=== PATIENT | female | born 1985 | race Caucasian/White ===

== ENCOUNTER 2020-05-05 04:36 | Outpatient (CLI) | payer MEDICAID, SELFPAY ==
--- NOTE | 2020-05-10 12:27 | PDOC.EEG_ITS ---
Neurology EEG EEG: [facility] Department of Neurology LONG-TERM AMBULATORY EEG REPORT Date of Recordin05/05/20 at 15:28:41 to 05/06/20 at 11:36:59 Interpreting Physician: Dr. Selene Damico PCP/Referring Provider: Dr. Ji Reason for study: Mr. Maldonado is a 35 year-old man with a recent unwitnessed event of loss of consciousness of unclear etiology. Current Medications: Home Medications Medication Instructions Recorded Confirmed Type amitriptyline 50 mg tablet 50 mg PO DAILY 04/11/20 04/12/20 History bupropion HCl 100 mg tablet 100 mg PO DAILY tab 04/11/20 04/12/20 History cholecalciferol (vitamin D3) 10 10 mcg PO DAILY 04/11/20 04/12/20 History mcg (400 unit) capsule cholecalciferol (vitamin D3) 25 25 mcg PO DAILY 04/11/20 04/12/20 History mcg (1,000 unit) capsule cyanocobalamin (vitamin B-12) 1,000 mcg PO DAILY 04/11/20 04/12/20 History 1,000 mcg capsule doxepin 10 mg capsule 30 mg PO DAILY cap 04/11/20 04/12/20 History famotidine 20 mg tablet 20 mg PO DAILY 04/11/20 04/12/20 History glipizide 5 mg tablet 5 mg PO DAILY 04/11/20 04/12/20 History metformin 500 mg tablet 500 mg PO TID 04/11/20 04/12/20 History oxybutynin chloride 10 mg 10 mg PO DAILY 04/11/20 04/12/20 History tablet,extended release 24 hr quetiapine 200 mg tablet,extended 200 mg PO DAILY 04/11/20 04/12/20 History release 24 hr simvastatin 40 mg tablet 40 mg PO DAILY 04/11/20 04/12/20 History METHODS: An 18-channel digitized electroencephalogram was recorded in the ambulatory se tting with video. The 10/20 international system of electrode placement was used and bipolar and referential electrode montages were recorded. In addition to EEG the patient was monitored for EKG and by video. Activation procedures of photic stimulation and hyperventilation were performed if applicable. The duration of the recording was ~20 hours. DESCRIPTION OF EEG: Waking background activity: During maximal wakefulness a 9-Hz posterior background rhythm was present which was well-modulated, symmetrical, reactive to eye opening, and of moderate voltage. Faster frequencies were present in the bilateral anterior head regions. There was a normal anterior-posterior voltage gradient. Drowsy and sleeping background activity: During drowsiness, there was attenuatio n of the posterior dominant background rhythm and vertex waves. Normal stage II and III sleep was present with symmetrical sleep spindles, K-complexes, and vertex waves with slowing of the background rhythm to delta/theta frequencies. REM sleep manifested by rapid lateral eye movements and faster background rhythms was recorded. Arousal was unremarkable. Interictal abnormalities: none. Ictal findings: No events captured. Activating Procedures: Photic stimulation was performed which produced no posterior driving response. Hyperventilation was performed with moderate effort and produced no physiological slowing of the background. EKG: EKG revealed normal sinus rhythm. INTERPRETATION: This long-term EEG is normal during the awake and sleep states as well as during the activation procedures. PRIOR EEG: none CLINICAL CORRELATION: No focal regions of cerebral dysfunction or epileptiform activity was present. Epilepsy remains a clinical diagnosis and a normal EEG does not rule out epilepsy. Clinical correlation is advised. Selene Damico MD
== END 2020-05-05 04:56 ==
PROVIDERS: PCP Family Medicine; Visit Provider Psychiatry & Neurology Neurology
DX: R41.89 Other symptoms and signs involving cognitive functions and awareness (principal); R56.9 Unspecified convulsions
CPT/HCPCS: 95714

== ENCOUNTER 2023-05-23 17:28 | Outpatient (CLI) | payer MEDICAID, SELFPAY ==
[2023-05-23 16:35] LABS: HCT 41.8 % (36.0-46.0); HGB 14.3 g/dL (11.2-15.7); MCH 29.2 pg (27.0-33.0); MCHC 34.2 % (32.0-36.0); MCV 86 fL (80-95); MPV 9.2 fL (8.0-11.0); Platelet Count 271 10^3/uL (130-400); RBC 4.89 10^6/uL (3.93-5.22); RDW 12.3 % (11.7-14.6); RDW-SD 38.5 fL; WBC 7.47 10^3/uL (4.4-10.8)
[2023-05-23 17:08] LABS: ALT 45 U/L (14-59); AST 45 U/L (15-37); Albumin 3.7 g/dL (3.4-5.0); Alkaline Phosphatase 107 U/L (46-116); BUN 14 mg/dL (7-18); Bilirubin, Total 0.5 mg/dL (0.2-1.0); CREATININE 1.2 mg/dL (0.55-1.02); Calcium 8.8 mg/dL (8.5-10.1); Chloride 103 mmol/L (98-107); Estimated GFR 59.05 (mL/min/1.73m2); Glucose 250 mg/dL (74-106); LDH 167 U/L (81-234); Potassium 3.9 mmol/L (3.5-5.1); Sodium 136 mmol/L (136-145); Total Protein 7.5 g/dL (6.4-8.2)
[2023-05-27 08:52] LABS: AFP Tumor Marker 5.1 ng/mL (<8.1)
[2023-05-27 10:30] LABS: Beta-HCG, Quant, Tumor Marker <0.6 IU/L
== END 2023-05-23 17:29 | disposition home or self-care (01) ==
LOC: LBO 17:29
PROVIDERS: PCP Family Medicine; Visit Provider Urology
DX: C62.12 Malignant neoplasm of descended left testis (principal)
CPT/HCPCS: 36415; 80053; 85027; 82105; 83615; 84702

== ENCOUNTER 2024-08-03 01:02 | Outpatient (CLI) | payer MEDICAID, SELFPAY ==
--- NOTE | 2024-08-03 | DI.NM_ITS ---
APPROVED REPORT Exam: Pharmacologic Patient Location: Out-Patient Room/Bed: Stress Nurse: Yen Hayes RN Ordering Provider:BEV DE LEON, Contact Number: [phone] BMI: 32.99 Baseline Rhythm: Sinus Rhythm Indications: chest pain Medical History Medical History: SI, hypersomnia, migraine, memory loss, orthostatic hypotension, seizure, GERD, bipo lar, anemia, HLD, diabetes, depression Cardiac Medications: bupropion, doxepin, famotidine, emgality, glipizide, metformin, quetiapine, simv astatin, sumatriptan, zonisamide, zofran Allergies: amoxicillin, penicillins, ranitidine Cardiac Risk Factors: family hx, diabetes, HLD, obesity Previous Cardiac Procedures: none Pretest Chest Pain Characteristics: Non-exertional Chest pain Exercise History: Sedentary Physical Disabilities: Back Lung Sounds: Clear to auscultation Heart Sounds: Regular Stress Test Details Test: Pharmacologic stress testing performed using 0.4 mg of regadenoson per 5 mL given IV over 10 s econds. Reason for pharmacologic stress test: physical limitation. Nuclear Acquisition: Rest Tc-99m/Stress Tc-99m 1 day Rest Isotope: Tc-99m Sestamibi. Dose: 10.0 Date: 08/03/2024 Injection Time: 1050 Stress Isotope: Tc-99m Sestamibi. Dose: 31.0 Date: 08/03/2024 Injection Time: 1245 HR Resting HR Supine: 68 bpm Max Heart Rate (APMHR): 180.197760 bpm Target HR (85% APMHR): 153.722712 bpm Max HR Achieved: 109 bpm % of APMHR: 60.56 Recovery HR: 77 bpm BP Resting BP Supine: 108/64 mmHg Max BP: 120/70 mmHg Recovery BP: 100/62 mmHg ECG Resting ECG: Sinus Rhythm Ectopy: none Stress ECG: Sinus Tachycardia ST Change: Nondiagnostic low heart rate Arrhythmia: None Recovery ECG: Sinus Rhythm Recovery ST Change: Nondiagnostic low heart rate Recovery Arrhythmia: None Clinical Stress Symptoms: Chest pain, SOB Angina Score: Non-Limiting Rate Pressure Product: 79030 Stress ECG Conclusion 1. Resting electrocardiogram was normal 2. Patient underwent testing using pharmacologic stress with regadenoson 3. Peak heart rate achieved was 61% of maximal predicted for age 4. The electrocardiographic portion of the test was nondiagnostic 5. See MPI report Stress Test Summary STAGE HR BP SpO2 Symptoms NOTES Supine 68 108/64 96 mild chest pain 1 min post Lexiscan injection 76 112/80 94 SOB, mild chest pain 3 min post Lexiscan injection 98 120/70 SOB, mild chest pain 6 min post Lexiscan injection 77 100/62 96 symptoms resolved Pt has constant baseline chest pain he rates a 0.5/10, no other symptoms. His chest pain increase to a max score of 1.5/10 during test. All symptoms resolved by end of test and patient left ambulatory i n no acute distress. MPI Conclusion Myocardial perfusion is normal. There is no ischemia or evidence of prior infarction Ejection fraction is 42% with global hypokinesis Radiologist Interpretation Radiologist Interpretation by: Hugo Godinez MD Interpretation Date/Time: 08/05/2024 14:46:09
[2024-08-03] MEDS: Regadenoson 0.4 MG/5 ML SYR IVP (12:45)
== END 2024-08-03 01:22 ==
PROVIDERS: PCP Family Medicine; Visit Provider Internal Medicine
DX: R07.9 Chest pain, unspecified (principal)
CPT/HCPCS: 78452; 93017; J2785

== ENCOUNTER 2025-01-29 16:47 | Emergency (ER) | payer MEDICAID, SELFPAY ==
[2025-01-29 17:02] VITALS: BP 127/85; PULSE 111; RESP 18; TEMP 36.7
[2025-01-29 18:11] VITALS: BP 124/76; PULSE 83; RESP 18; TEMP 36.7; O2SAT 99
[2025-01-29 19:49] VITALS: BP 128/64; PULSE 78; RESP 18; TEMP 36.7; O2SAT 98
--- NOTE | 2025-01-29 23:01 | W.ED.GENAD ---
Discharge Plan Disposition Patient Disposition: Home Condition: Stable Discharge Details Clinical Impression: Pain in testicle Primary Care Provider: Jaron Ji ED Provider: Erin Mercado Home Meds and New Rx's Prescriptions: Continued zonisamide 100 mg capsule 200 mg PO HS Qty: 180 3RF Emgality Pen 120 mg/mL pen injector 120 mg subcut QMONTH Qty: 3 3RF sumatriptan succinate 100 mg tablet See Rx Instructions PO .COMPLEX Qty: 9 5RF Rx Instructions: take 1 tab at onset of headache; if no relief, may repeat 1 tab after at least 2 hrs; max = 2 tabs/24 hrs PO aspirin [Adult Aspirin Regimen] 81 mg tablet,delayed release (DR/EC) 81 mg PO DAILY ibuprofen [Advil] 200 mg tablet 600 mg PO Q6H PRN quetiapine 200 mg tablet extended release 24 hr 200 mg PO QHS Qty: 30 0RF bupropion HCl 100 mg tablet 100 mg PO DAILY famotidine 20 mg tablet 20 mg PO DAILY glipizide 5 mg tablet 5 mg PO DAILY simvastatin 40 mg tablet 40 mg PO DAILY doxepin 10 mg capsule 20 mg PO QHS Qty: 180 3RF metformin 500 mg tablet 1,000 mg PO BID Discharge Instructions Additional Instructions: Diagnostic imaging will call you regarding your ultrasound to schedule it A muscle listening referral to Dr. Nazario our urologist Please return earlier should you have new or worsening complaints Wear supportive garments Please return earlier should you have new or worsening complaints Referrals: Damian Nazario MD [ [facility] STAFF PHYSICIAN] - 1 week Discharge Orders Other Ambulatory Orders: US scrotum (Routine) Timeframe: 3 Days Facility: [facility] - Location: DIAGNOSTIC IMAGING Ordered By: Erin Mercado Discharge Data Discharge Date/Time-TO BE ENTERED AT DEPARTURE: 01/29/25 19:50 HPI General Date/Time Provider Initiated Documentation: 01/29/25 17:33. HPI Narrative: 39-year-old male with history of left-sided testicular cancer, status post orchiectomy 5 years ago, presents with right-sided testicular pulling for 3 months. No sexual activity for 10 years, no trauma, no systemic symptoms (fever, chills, urinary complaints, weight loss, night sweats). Related Data Home Medications ?Medication ?Instructions ?Recorded ?Confirmed bupropion HCl 100 mg tablet 100 mg PO DAILY 04/11/20 01/29/25 famotidine 20 mg tablet 20 mg PO DAILY 04/11/20 01/29/25 glipizide 5 mg tablet 5 mg PO DAILY 04/11/20 01/29/25 simvastatin 40 mg tablet 40 mg PO DAILY 04/11/20 01/29/25 doxepin 10 mg capsule 20 mg (2 x 10 mg) PO QHS #180 caps 04/16/24 01/29/25 metformin 500 mg tablet 1,000 mg PO BID 05/28/24 01/29/25 aspirin 81 mg tablet,delayed 81 mg PO DAILY 08/27/24 01/29/25 release (Adult Aspirin Regimen) ibuprofen 200 mg tablet (Advil) 600 mg PO Q6H PRN 08/27/24 01/29/25 quetiapine 200 mg tablet,extended 200 mg PO QHS #30 tabs 08/27/24 01/29/25 release 24 hr galcanezumab-gnlm 120 mg/mL 120 mg subcut QMONTH #3 mL 12/22/24 01/29/25 subcutaneous pen injector (Emgality Pen) sumatriptan succinate 100 mg tablet See Rx Instructions PO .COMPLEX #9 12/22/24 01/29/25 tabs zonisamide 100 mg capsule 200 mg (2 x 100 mg) PO HS #180 caps 12/22/24 01/29/25 Previous Rx's ?Medication ?Instructions ?Recorded doxepin 10 mg capsule 20 mg (2 x 10 mg) PO QHS #180 caps 04/16/24 quetiapine 200 mg tablet,extended 200 mg PO QHS #30 tabs 08/27/24 release 24 hr galcanezumab-gnlm 120 mg/mL 120 mg subcut QMONTH #3 mL 12/22/24 subcutaneous pen injector (Emgality Pen) sumatriptan succinate 100 mg tablet See Rx Instructions PO .COMPLEX #9 12/22/24 tabs zonisamide 100 mg capsule 200 mg (2 x 100 mg) PO HS #180 caps 12/22/24 Allergies Allergy/AdvReac Type Severity Reaction Status Date / Time amoxicillin Allergy Other (See Verified 01/29/25 17:04 Comment) Penicillins Allergy Other (See Verified 01/29/25 17:04 Comment) ranitidine AdvReac Unknown Other (See Verified 01/29/25 17:04 Comment) General Stated Complaint: Male Reproductive Problem EVIN: 3 Exam Narrative Exam Narrative: General Appearance: Alert and oriented. Vital signs: Within normal limits. HEENT: Within normal limits. Respiratory: Within normal limits. Gastrointestinal: No abdominal tenderness. Genitourinary: Male: Slight tenderness without swelling, normal cremasteric reflex on right testicle. No hernia, masses, or lesions. Lymphatic: No lymphadenopathy. Skin: Warm and dry, no rash. Neurological: Normal. Course Vital Signs Vital signs: Vital Signs Temperature 36.7 C 01/29/25 17:02 Pulse 111 H 01/29/25 17:02 Respiratory Rate 18 01/29/25 17:02 Blood Pressure 127/85 01/29/25 17:02 Temperature 36.7 C 01/29/25 19:49 Temperature Source Oral 01/29/25 18:11 Pulse 78 01/29/25 19:49 Respiratory Rate 18 01/29/25 19:49 Blood Pressure 128/64 01/29/25 19:49 Blood Pressure Mean 92 01/29/25 18:11 Pulse Oximetry 98 01/29/25 19:49 Oxygen Delivery Method Room Air 01/29/25 18:11 Oxygen Flow Rate 0 01/29/25 18:11 Pain Level 3 01/29/25 18:11 Medical Decision Making Initial Assessment: 39-year-old male with history of left-sided testicle cancer status post orchiectomy 5 years ago, presents with right-sided testicular pulling for 3 months. Denies fever, chills, urinary complaints, sexual activity for 10 years, trauma, weight loss, or night sweats. Slight tenderness without swelling, normal cremasteric reflex on right. No hernia, masses, lesions, abdominal tenderness, or lymphadenopathy. ED Course: - Ordered outpatient scrotal ultrasound due to history of left-sided testicular cancer and orchiectomy. - No acute abnormality, no emergent ultrasound needed. - Referral to Dr. Nazario in urology. - Reviewed return precautions, patient understood. Final Assessment: Patient presents with right-sided testicular pulling for 3 months with slight tenderness but no swelling or other significant findings. Outpatient scrotal ultrasound ordered, no acute abnormality found, referral to urology made. Clinical Impression: - Right-sided testicular pulling Disposition: - Discharge - Follow-Up: Referral to Dr. Nazario in urology. Patient Education: Reviewed return precautions, patient expressed understanding. MDM Components Evaluation: - Number of Differential Diagnoses or Management Options: Right-sided testicular pulling - Amount and Complexity of Data Reviewed: Outpatient scrotal ultrasound ordered, referral to urology. - Risk of Complication and Morbidity or Mortality: Low risk given no acute abnormality and extended duration of symptoms. Quality:SDOH Health Related Social Needs: No Data to Display PFSH All Active Problems (Updated 01/29/25 @ 19:43 by LARA Smith) Pain in testicle (Acute) Suicidal ideation (Acute) Hypersomnia (Acute) Back pain (Acute) Chronic headache (Acute) Migraine headache with aura (Acute) Memory loss (Acute) Orthostatic hypotension (Acute) Spell of altered cognition (Acute) Seizure (Acute) Testicular dysplasia (Acute) Medical History Cancer Testicular, 2018 Insomnia Overactive bladder Irritable bowel syndrome GERD (gastroesophageal reflux disease) Bipolar disorder Anemia Hyperlipidemia Diabetes Surgical History S/P radical unilateral orchiectomy Right 2018 Family History Mother Crohn's disease Father Cancer Other Diabetes Social History Smoking/Tobacco Use Status: Never Smoking risk assessment performed?: Yes Alcohol Intake: never Drug use: Never Household members: family Housing: apartment current occupation: Disabled Do you feel safe at home: Yes Do you feel safe in your relationship?: Yes
== END 2025-01-29 19:50 | disposition home or self-care (01) ==
PROVIDERS: Emergency Provider Physician Assistant; PCP Family Medicine
DX: N50.811 Right testicular pain (principal); E78.5 Hyperlipidemia, unspecified; E11.9 Type 2 diabetes mellitus without complications; Z85.47 Personal history of malignant neoplasm of testis; Z79.82 Long term (current) use of aspirin; Z79.84 Long term (current) use of oral hypoglycemic drugs
CPT/HCPCS: 99283

== ENCOUNTER 2025-02-10 01:03 | Outpatient (CLI) | payer MEDICAID, SELFPAY ==
--- NOTE | 2025-02-10 07:30 | DI.US_ITS ---
Exam(s) US SCROTUM EXAM: US SCROTUM CLINICAL HISTORY: hx of testicular ca, r sided pain,c80.1 TECHNIQUE: Ultrasound of the testes performed using grayscale, color, and Doppler imaging. COMPARISON: No exams were available for comparison FINDINGS: RIGHT HEMISCROTUM: The right testicle exhibits normal size (5 x 2.3 x 3.2 cm) and echo architecture with no evidence of intratesticular mass. Vascular flow was demonstrated within the right testicle, including arterial w aveforms. The epididymis appears unremarkable. There is a small 2 x 3 mm epididymal head cyst/spermatocele. There is a moderate size right hydrocele measuring 3.4 x 1.1 x 3.6 cm. This does not appear loculate d. LEFT HEMISCROTUM: Left testicle is surgically absent. IMPRESSION: 1. Left testicle is surgically absent. No left hemiscrotal findings. 2. Right testicle appears unremarkable without evidence of mass or torsion. 3. Small right hydrocele noted. DATA REPOSITORY:
--- NOTE | 2025-02-11 16:50 | W.ED.FU ---
Follow Up Plan: Patient called today requesting results of ultrasound. I reviewed the results of the ultrasound results with the patient. I recommended he follow-up with urology as directed at time of discharge.
== END 2025-02-10 01:23 ==
LOC: DI 01:03
PROVIDERS: PCP Family Medicine; Visit Provider Physician Assistant
DX: Z85.47 Personal history of malignant neoplasm of testis (principal); N43.3 Hydrocele, unspecified; N50.811 Right testicular pain
CPT/HCPCS: 76870

== ENCOUNTER 2025-04-21 16:49 | Emergency (ER) | payer MEDICAID, SELFPAY ==
[2025-04-21 16:56] VITALS: BP 115/74; PULSE 87; RESP 18; TEMP 36.8; O2SAT 98
--- NOTE | 2025-04-21 17:18 | W.ED.GENAD ---
Discharge Plan Disposition Patient Disposition: Home Condition: Improving Discharge Details Clinical Impression: Tendonitis of knee, right Primary Care Provider: Jaron Ji ED Provider: Arron De Meds and New Rx's Prescriptions: New naproxen 375 mg tablet 375 mg PO BID PRNQty: 20 0RF Continued sumatriptan succinate 100 mg tablet See Rx Instructions PO .COMPLEX Qty: 9 5RF Rx Instructions: take 1 tab at onset of headache; if no relief, may repeat 1 tab after at least 2 hrs; max = 2 tabs/24 hrs PO aspirin [Adult Aspirin Regimen] 81 mg tablet,delayed release (DR/EC) 81 mg PO DAILY ibuprofen [Advil] 200 mg tablet 600 mg PO Q6H PRN quetiapine 200 mg tablet extended release 24 hr 200 mg PO QHS Qty: 30 0RF Emgality Pen 120 mg/mL pen injector 120 mg subcut QMONTH Qty: 3 3RF zonisamide 100 mg capsule 200 mg PO HS Qty: 180 3RF bupropion HCl 100 mg tablet 100 mg PO DAILY famotidine 20 mg tablet 20 mg PO DAILY glipizide 5 mg tablet 5 mg PO DAILY simvastatin 40 mg tablet 40 mg PO DAILY doxepin 10 mg capsule 20 mg PO QHS Qty: 180 3RF metformin 500 mg tablet 1,000 mg PO BID Discharge Instructions Instructions: Overuse Injuries, Knee Pain ED Discharge Data Discharge Physician: Arron De HPI General Date/Time Provider Initiated Documentation: 04/21/25 17:03. HPI Narrative: Patient presents emergency department complaining of right lateral knee pain that has had in the past. He states a year ago he injured his right knee and has been having on and off pain in the lateral aspect of the right knee states the pain is a sharp pain but he is able to flex extends and move his knee is just that he had a loss this week with his cat and dog he has been awake for days and the right knee started hurting. Denies any numbness denies any distal weakness of his foot. Related Data Home Medications ?Medication ?Instructions ?Recorded ?Confirmed bupropion HCl 100 mg tablet 100 mg PO DAILY 04/11/20 04/21/25 famotidine 20 mg tablet 20 mg PO DAILY 04/11/20 04/21/25 glipizide 5 mg tablet 5 mg PO DAILY 04/11/20 04/21/25 simvastatin 40 mg tablet 40 mg PO DAILY 04/11/20 04/21/25 doxepin 10 mg capsule 20 mg (2 x 10 mg) PO QHS #180 caps 04/16/24 04/21/25 metformin 500 mg tablet 1,000 mg PO BID 05/28/24 04/21/25 aspirin 81 mg tablet,delayed 81 mg PO DAILY 08/27/24 04/21/25 release (Adult Aspirin Regimen) ibuprofen 200 mg tablet (Advil) 600 mg PO Q6H PRN 08/27/24 04/21/25 quetiapine 200 mg tablet,extended 200 mg PO QHS #30 tabs 08/27/24 04/21/25 release 24 hr sumatriptan succinate 100 mg tablet See Rx Instructions PO .COMPLEX #9 12/22/24 04/21/25 tabs galcanezumab-gnlm 120 mg/mL 120 mg subcut QMONTH #3 mL 04/20/25 04/21/25 subcutaneous pen injector (Emgality Pen) zonisamide 100 mg capsule 200 mg (2 x 100 mg) PO HS #180 caps 04/20/25 04/21/25 naproxen 375 mg tablet 375 mg PO BID PRN #20 tabs 04/21/25 Previous Rx's ?Medication ?Instructions ?Recorded doxepin 10 mg capsule 20 mg (2 x 10 mg) PO QHS #180 caps 04/16/24 quetiapine 200 mg tablet,extended 200 mg PO QHS #30 tabs 08/27/24 release 24 hr sumatriptan succinate 100 mg tablet See Rx Instructions PO .COMPLEX #9 12/22/24 tabs galcanezumab-gnlm 120 mg/mL 120 mg subcut QMONTH #3 mL 04/20/25 subcutaneous pen injector (Emgality Pen) zonisamide 100 mg capsule 200 mg (2 x 100 mg) PO HS #180 caps 04/20/25 naproxen 375 mg tablet 375 mg PO BID PRN #20 tabs 04/21/25 Allergies Allergy/AdvReac Type Severity Reaction Status Date / Time amoxicillin Allergy Other (See Verified 04/21/25 17:03 Comment) Penicillins Allergy Other (See Verified 04/21/25 17:03 Comment) ranitidine AdvReac Unknown Other (See Verified 04/21/25 17:03 Comment) General Stated Complaint: Vascular EVIN: 4 Review of Systems Narrative: Review of Systems: Constitutional: No fevers, chills, sweats Eye: No recent visual problems ENT: No ear pain, nasal congestion, sore throat Respiratory: No shortness of breath, cough Cardiovascular: No Chest pain, palpitations, syncope Gastrointestinal: No nausea, vomiting, diarrhea Genitourinary: No hematuria Rogelio/Lymph: Negative for bruising tendency, swollen lymph glands Endocrine: Negative for excessive thirst, excessive hunger Musculoskeletal: No back pain, neck pain,muscle pain, decreased range of motion Integumentary: No rash, pruritus, abrasions Neurologic: Alert & oriented X 4 Exam Narrative Exam Narrative: Exam; vitals signs as reported above normal Constitutional; In no acute distress, afebrile General: cooperative, healthy appearing, comfortable and no acute distress HEENT: Head: normal to inspection, no palpable skull fracture and normocephalic atraumatic Eyes: : appearance normal, both eyes and all related structures EOM intact bilaterally Pupils: PERRL : conjunctiva normal Direct ophthalmoscopy: normal light reflex, normal conjunctiva, normal visual acuity Ears: Normal TM, normal external canal Nose: normal no rhinorreha Neck no JVD, supple non tender Neck: normal visual inspection, full ROM and no lymphadenopathy Chest: normal inspection of the chest Respiratory : normal respiratory effort and able to speak in complete sentences no wheezing no rales Cardio Rate: regular rate, rhythm: regular rhythm normal heart sounds S1 and S2 no murmurs, gallops, or rubs GI : normal to inspection, normal bowel sounds, soft, non tender, non distended, no organomegaly Back/Spine/ no CVA tenderness Thoracic/Lumbar Spine: no tenderness or deformities Skin no rashes or lesions Neuro: patient alert oriented x 4 and no meningeal signs, Cranial Nerves: CN's II-XI intact bilaterally, Cognition: normal cognition, Speech: speech normal, Gait: normal gait, Depp tendon reflexes normal 2+ muscle strength 5/5 bilaterally Extremities, no edema, full range of motion, normal strength point tenderness to the lateral asp of the right knee at the level of the insertion of the iliotibial band to the tibial plateau Course Vital Signs Vital signs: Vital Signs Temperature 36.8 C 04/21/25 16:56 Pulse 87 04/21/25 16:56 Respiratory Rate 18 08/13/25 16:56 Blood Pressure 115/74 04/21/25 16:56 Pulse Oximetry 98 04/21/25 16:56 Temperature 36.8 C 04/21/25 16:56 Temperature Source Oral 04/21/25 16:56 Pulse 87 04/21/25 16:56 Respiratory Rate 18 04/21/25 16:56 Blood Pressure 115/74 04/21/25 16:56 Blood Pressure Position Sitting 04/21/25 16:56 Pulse Oximetry 98 04/21/25 16:56 Oxygen Delivery Method Room Air 04/21/25 16:56 Oxygen Flow Rate 0 04/21/25 16:56 Pain Level 6 04/21/25 16:56 Medical Decision Making MDM: Summary: Patient has occasional pain in the lateral aspect of the right knee and after he had some rough time with his dog and cat . Patient reports pain in the right wrist right knee. X-rays were negative. Most likely tendinitis will be discharged home he received Toradol here with improvement and will be discharged home with Naprosyn Data Review Analysis All the data on this patient was reviewed by me including laboratory and imaging studies as well as bedside studies performed by me Independent review of Studies Imaging Medical record the radiologist Lab: Risk Stratification: Patient with tendinitis we discharged home and told to put in a brace and will be discharged on Naprosyn Differential Diagnosis: 1. Bilateral knee iliac BAND and tendinitis 2. Tibial plateau fracture 3. 4. 5. Consultants: Shared disposition: Patient is at disposition will follow according Impression: PFS All Active Problems (Updated 04/21/25 @ 18:53 by Arron De MD) Tendonitis of knee, right (Acute) Suicidal ideation (Acute) Hypersomnia (Acute) Back pain (Acute) Chronic headache (Acute) Migraine headache with aura (Acute) Memory loss (Acute) Orthostatic hypotension (Acute) Spell of altered cognition (Acute) Seizure (Acute) Testicular dysplasia (Acute) Medical History Cancer Testicular, 2018 Insomnia Overactive bladder Irritable bowel syndrome GERD (gastroesophageal reflux disease) Bipolar disorder Anemia Hyperlipidemia Diabetes Surgical History S/P radical unilateral orchiectomy Right 2018 Family History Mother Crohn's disease Father Cancer Other Diabetes Social History Smoking/Tobacco Use Status: Never Smoking risk assessment performed?: Yes Alcohol Intake: never Drug use: Never Household members: family Housing: house current occupation: Disabled Do you feel safe at home: Yes Do you feel safe in your relationship?: Yes
--- NOTE | 2025-04-21 17:30 | DI.RAD_ITS ---
Exam(s) XR KNEE RT 3V AP,LAT,KENIA EXAM: XR KNEE RT 3V AP,LAT,KENIA CLINICAL HISTORY: acute on chronic lateral right knee pain. TECHNIQUE: 2D digital imaging was performed. Three views. COMPARISON: No exams were available for comparison FINDINGS: BONES: No acute fracture is present. No bony destructive lesion is seen. JOINTS: The knee is normally aligned. No joint effusion is seen. The joint spaces are maintained. There are no significant degenerative changes. SOFT TISSUE: Normal. IMPRESSION: Unremarkable radiographs of the right knee. DATA REPOSITORY: RADIATION DOSE DELIVERED:
[2025-04-21] MEDS: Ketorolac 30 MG/ML VIAL IM (17:57)
[2025-04-21 19:04] VITALS: BP 109/73; PULSE 83; RESP 20; TEMP 36.6; O2SAT 96
== END 2025-04-21 19:04 | disposition home or self-care (01) ==
PROVIDERS: Emergency Provider Emergency Medicine Emergency Medical Services; PCP Family Medicine
DX: M76.9 Unspecified enthesopathy, lower limb, excluding foot (principal)
CPT/HCPCS: 99284; 99283; 96372; 73562; J1885